=== PATIENT | female | born 1970 | race African-American/Black ===

== ENCOUNTER 2022-06-23 14:30 | Emergency (ER) | payer MEDICARE, MEDICAID, SELFPAY ==
[2022-06-23 14:43] VITALS: BP 146/101; PULSE 134; RESP 18; TEMP 36.3; O2SAT 99
[2022-06-23 15:34] LABS: Basophils Percent Auto 0.4 % (0.2-1.2); Eosinophils Percent Auto 0.2 % (0-4.4); Hematocrit 42.8 % (37.0-47.0); Immature Granulocyte Absolute 0.03 K/mm3 (0.00-0.031); Immature Granulocyte Percent A 0.3 % (0-0.5); Lymphocytes Absolute Auto 1.73 K/mm3 (0.9-3.2); Mean Corpuscular HGB Conc 32.7 g/dl (32-36); Mean Corpuscular Hemoglobin 30.3 pg (26-34); Mean Corpuscular Volume 92.6 fl (80-100); Monocytes Absolute Auto 0.5 K/mm3 (0.1-0.6); Monocytes Percent Auto 5.3 % (2.6-8.5); Neutrophils Absolute Auto 7.3 K/mm3 (1.3-6.7); Neutrophils Percent Auto 75.8 % (45.5-73.1); Platelet Count Result 232 k/mm3 (150-375); Red Blood Count 4.62 M/mm3 (4.2-5.4); Red Cell Distribution Width 15.7 % (11.5-14.5); White Blood Count 9.6 K/mm3 (4.5-10.0)
[2022-06-23 15:45] LABS: Ethanol < 10 mg/dL (<10)
--- NOTE | 2022-06-23 16:04 | ED.GENADULT ---
HPI - General Adult General Chief complaint: Psychiatric Symptoms Stated complaint: AMS Time Seen by Provider: 06/23/22 15:34 Source: patient Mode of arrival: ambulatory Limitations: no limitations History of Present Illness HPI narrative: Patient is a 52-year-old female, with past medical history of schizophrenia and bipolar disorder, who presents to the ED with report of suicidal ideation. Patient reports life has been hard lately. She was recently evicted from her apartment and has not been living with her son for the past few days. She reports having increased suicidal ideation over the last few days. She states she just wants to be happy, and if she is unable to be happy, she would rather it be over. She denies any specific plan. She has previously attempted suicide with overdose on medications several years ago. Denies any homicidal ideation or AVH. Patient has been hospitalized for psychiatric reasons, again several years ago. Patient denies any other complaints at this time. Related Data Home Medications Medication Instructions Recorded Confirmed aspirin 81 mg tablet,delayed mg 06/23/22 release furosemide 40 mg tablet mg 06/23/22 isosorbide mononitrate 30 mg mg PO 06/23/22 tablet,extended release 24 hr lisinopril 20 mg tablet mg 06/23/22 metoprolol tartrate 50 mg tablet mg 06/23/22 nitroglycerin 0.4 mg sublingual mg 06/23/22 tablet Allergies Allergy/AdvReac Type Severity Reaction Status Date / Time No Known Allergies Allergy Verified 06/23/22 17:06 Review of Systems Review of Systems: CONSTITUTIONAL: Denies fever. CARDIOVASCULAR: Denies chest pain. RESPIRATORY: Denies dyspnea. GASTROINTESTINAL: Denies abdominal pain, nausea, vomiting. PSYCHIATRIC: Reports depression, SI. Denies HI, AVH. All systems reviewed & are unremarkable except as noted in HPI and below PMFSH Past Medical History Medical History (Updated 06/23/22 @ 20:20 by Veronica Massey PA-C) Bipolar disorder HLD (hyperlipidemia) HTN (hypertension) Neuropathy Schizophrenia Surgical History Surgical History (Updated 06/23/22 @ 18:41 by Veronica Massey PA-C) History of vascular surgery Social History Social History (Updated 06/23/22 @ 18:42 by Veronica Massey PA-C) Smoking status: Never smoker Alcohol intake: former Substance use: never Living arrangements: with family Exam Narrative: GENERAL: Mildly disheveled appearing, well-nourished, non-toxic, in no acute distress. HEAD: Normocephalic, atraumatic. NECK: Supple. No adenopathy, no masses. RESPIRATORY: Airway patent, respirations nonlabored. Clear to auscultation bilaterally, no rales, rhonchi, wheezing. CARDIOVASCULAR: Regular rate and rhythm without murmurs, rubs, or gallops. Peripheral pulses 2+ and equal bilaterally. ABDOMINAL: Soft, nontender, nondistended, no hepatosplenomegaly. Normoactive BS. Large midline abdominal scar with keloid formation. MUSCULOSKELETAL: Moves all extremities. Strength/ROM intact without gross deformities. SKIN: Warm, dry, normal color. No rashes. NEURO: A&O X3. Speech clear. Cranial nerves II-XII grossly intact. No ataxic movements. PSYCHIATRIC: Flat affect, very labile mood, does appear to be responding to internal stimuli at times but re-directable. Answers all questions. Does respond inappropriately at times, but otherwise seems very lucid. Course Course Emergency Course: 2010 - Patient medically cleared to undergo psychiatric evaluation by crisis. Vital Signs Vital signs: Vital Signs Temperature 97.4 F L 06/23/22 14:43 Pulse Rate 134 H 06/23/22 14:43 Respiratory Rate 18 06/23/22 14:43 Blood Pressure 146/101 H 06/23/22 14:43 Pulse Oximetry 99 06/23/22 14:43 Temperature 97.4 F L 06/23/22 14:43 Pulse Rate 99 06/24/22 00:09 Respiratory Rate 18 06/24/22 00:09 Blood Pressure 149/93 H 06/24/22 00:09 Pulse Oximetry 98 06/24/22 00:09 Medical Decision Making
[2022-06-23 16:56] LABS: Alanine Aminotransferase 17 U/L (6-35); Alkaline Phosphatase 123 U/L (38-126); Anion Gap 15 mmol/L (8-16); Aspartate Amino Transferase 35 U/L (14-36); Bilirubin,Total 0.8 mg/dL (0.2-1.3); Blood Urea Nitrogen 36 mg/dL (7-17); Calcium 9.8 mg/dL (8.4-10.2); Carbon Dioxide 24 mmol/L (22-30); Chloride 100 mmol/L (98-107); Estimated Glomerular Filt Rate 21; Glucose 223 mg/dL (65-110); Potassium 3.4 mmol/L (3.4-5.0); Sodium 139 mmol/L (137-145)
[2022-06-23 16:57] LABS: Acetaminophen < 10 ug/mL (10-30); Salicylate < 1.0 mg/dL (2-20)
[2022-06-23] MEDS: SODIUM CHLORIDE 0.9% IV 1,000 ML 999 ML IV CONT ×2 (17:14→19:05)
[2022-06-23 17:25] LABS: SARS-CoV-2 RNA PCR Negative
[2022-06-23] MEDS: LORazepam INJ (*CRX) 2 MG/ML VIAL 0.5 MG IV PUSH (18:12)
--- NOTE | 2022-06-23 18:16 | PC.NURSE ---
Patient began to get verbally aggressive and escalate at this RN. patient was yelling i need to go save my son . this RN attempted to verbally deescalate patient without success. patient lunged at this RN threatening to get out this bed . this RN spoke with MD about needing some medication to help patient calm down. MD ordered ativan.
[2022-06-23 18:26] LABS: Amphetamine Screen Urine Negative (Negative); Barbiturate Screen Urine Negative (Negative); Benzodiazepines Screen Urine Negative (Negative); Cannabinoid Screen Urine Negative (Negative); Cocaine Screen Urine Negative (Negative); Methadone Screen Urine Negative (Negative); Opiate Screen Urine Negative (Negative); Phencyclidine Screen Urine Negative (Negative)
--- NOTE | 2022-06-23 18:46 | PC.NURSE ---
Lab called about patient's UA.
[2022-06-23 18:49] LABS: Appearance Urine Clear (Clear); Bilirubin Urine Negative (Negative); Blood Urine Negative (Negative); Color Urine Yellow (Yellow); Glucose Urine UA Negative (Negative); Ketones Urine Trace mg/dL (Negative); Leukocyte Esterase Ur Negative LEU/UL (Negative); Nitrate Urine Negative (Negative); Protein Urine 2+ mg/dL (Negative); Specific Grav Ur 1.015 (1.001-1.035); Urobilinogen Urine 0.2 mg/dL (<2.0); pH Urine 5.5 (5.0-9.0)
[2022-06-23 18:54] LABS: Amorphous Sediment Urine Few; Bacteria Urine Trace /hpf; Mucus Urine Rare /lpf; RBC Urine 0-2 /hpf (0-2); Squamous Epithelial Cell Urine Rare /hpf (Few); WBC Urine 0-3 /hpf
[2022-06-23 18:58] LABS: Add Urine Microscopic? YES
--- NOTE | 2022-06-23 20:12 | PC.NURSE ---
Per SORAYA Martin, pt now medically clear for crisis evaluation.
--- NOTE | 2022-06-23 22:17 | PC.NURSE ---
Pt moved to Room ED 15 from ED 8.
--- NOTE | 2022-06-23 23:16 | PC.NURSE ---
spoke with cadence at [facility], patient is accepted. [phone] for report in approx 30 mins from accepting call. provider and charge nurse aware
--- NOTE | 2022-06-23 23:18 | PC.NURSE ---
[facility] accepted transfer to [facility] eta 45min
[2022-06-24 00:09] VITALS: BP 149/93; PULSE 99; RESP 18; O2SAT 98
== END 2022-06-24 00:10 ==
PROVIDERS: Emergency Medicine; Physician Assistant; Emergency Provider Emergency Medicine
DX: R45.851 Suicidal ideations (principal); Z91.51 Personal history of suicidal behavior; I10 Essential (primary) hypertension; E78.5 Hyperlipidemia, unspecified; F31.9 Bipolar disorder, unspecified; F20.9 Schizophrenia, unspecified; Z20.822 Contact with and (suspected) exposure to COVID-19; Z79.899 Other long term (current) drug therapy
CPT/HCPCS: 36415; 80053; 80307; 81001; 81025; 84443; 85025; 96361; 96374; 99285; C9803; J2060; J7030; U0003; U0005